=== PATIENT | male | born 1985 | race Caucasian/White ===

== ENCOUNTER 2020-08-21 13:02 | Outpatient (AMBR) | payer MEDICAID, SELFPAY ==
--- NOTE | 2020-08-21 18:26 | PT.ODS1RPT ---
PT OP Progress/Discharge Note Date of Service: 08/21/20 Progress Note/DC Note Progress Note/Discharge Note: DC Note Patient Information Visit Reasons: post op right knee Service Continue Service or Discharge: Discharge Discharge Date: 08/21/20 Status Subjective: Pt has RTW and would like to be done with therapy since the knee is doing much better and he can jog without significant pain. Objective: R knee AROM: Flexion: 120 deg Extension: full Stairs: not limited by pain Jog: not limited by pain Strength: Quads: 4+/5 HS: 4+/5 Assessment: Pt has attended the eval and 10 Rx visits and met all goals established at the evaluation including stairs, gait and knee flexion goals. Pt can jog for 10' at 4 mph without significant pain. Plan: D/C with [facility] Office Procedures PT Procedures PT Date of Service: 08/21/20 Therapeutic Exercise 30 minutes: Yes
== END 2020-09-16 23:59 | disposition home or self-care (01) ==
PROVIDERS: PCP Orthopaedic Surgery; Referring Provider Orthopaedic Surgery; Visit Provider Orthopaedic Surgery
DX: M25.561 Pain in right knee (principal)
CPT/HCPCS: 97110

== ENCOUNTER → 2025-09-29 | Outpatient (BNVA) | payer BC, SELFPAY | END | disposition home or self-care (01) | PROVIDERS: PCP Physician Assistant; Referring Provider Physician Assistant; Visit Provider Urology | DX: Z30.2 Encounter for sterilization (principal) | CPT/HCPCS: 81003; 99202; G0463 ==